=== PATIENT | female | born 1950 | race African-American/Black ===

== ENCOUNTER 2018-01-03 14:14 | Inpatient (IN) | END 2018-01-10 22:56 | DRG 233 ==

== ENCOUNTER 2018-01-10 23:12 | Inpatient (IN) | END 2018-01-20 11:45 | disposition home health service (06) | DRG 945 ==

== ENCOUNTER 2018-03-21 12:48 | Inpatient (IN) | END 2018-03-26 20:48 | disposition home health service (06) | DRG 280 ==